=== PATIENT | female | born 1985 ===

== ENCOUNTER 2023-01-18 07:24 | Day surgery (SDC) | payer OTHER | END 2023-01-18 17:20 | disposition home or self-care (01) | LOC: CIR.AMB 07:24 | PROVIDERS: ATTEND Colon & Rectal Surgery | DX: K64.2 Third degree hemorrhoids (principal); K64.4 Residual hemorrhoidal skin tags; K92.1 Melena; I10 Essential (primary) hypertension; Z20.822 Contact with and (suspected) exposure to COVID-19 ==